=== PATIENT | male | born 1980 | race Caucasian/White ===

== ENCOUNTER 2020-02-07 09:40 | Emergency (ER) | payer SELFPAY ==
[~2020-02-07] VITALS: Ht 182.9 cm; Wt 95.4 kg
[2020-02-07 10:19] VITALS: BP 134/100
[2020-02-07] MEDS ORDERED: METH4TAB2 PO (10:32)
[2020-02-07] MEDS ORDERED: DICL50TA2 PO (10:32)
--- NOTE | 2020-02-07 10:33 | PHYS DOC ---
Past Medical History Past Medical History: No Pertinent History (TWIN BENJAMIN EYEGLASS LENS GRINDER) Past Surgical History: Appendectomy (TWIN BENJAMIN APRN) Smoking Status: Never Smoker Alcohol Use: None (TWIN BENJAMIN APRN) Adult General Chief Complaint Chief Complaint: SHOULDER INJURY HPI HPI Patient is a 40 year old male who presents with 9 days ago states he woke up and thinks he laid on his right shoulder wrong. He states he started having sharp shooting pain that went from his right shoulder blade down his arm and had tingling in his index finger. He states that the pain is getting better as it is a 6 out of 10. He states he has been taking naproxen. 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 (TWIN BENJAMIN APRN) Review of Systems Review of Systems Musculoskeletal: Right shoulder blade pain that radiates down the right arm. Denies back pain or joint pain [] All other systems were reviewed and found to be within normal limits, except as documented in this note. (TWIN BENJAMIN APRN) Allergies Allergies Allergies Coded Allergies Type Severity Reaction Last Updated Verified No Known Drug Allergies 02/07/20 No (BRET ANDERSEN MD) Physical Exam Physical Exam Constitutional: Well developed, well nourished, no acute distress, non-toxic appearance. [] HENT: Normocephalic, atraumatic, bilateral external ears normal, oropharynx moist, no oral exudates, nose normal. [] Eyes: PERRLA, EOMI, conjunctiva normal, no discharge. [] Neck: Normal range of motion, no tenderness, supple, no stridor. [] Cardiovascular:Heart rate regular rhythm, no murmur [] Lungs & Thorax: Bilateral breath sounds clear to auscultation [] Abdomen: Bowel sounds normal, soft, no tenderness, no masses, no pulsatile masses. [] Skin: Warm, dry, no erythema, no rash. [] Back: No tenderness, no CVA tenderness. [] Extremities: Right medial forearm tenderness, no cyanosis, no clubbing, ROM intact, no edema. [] Neurologic: Alert and oriented X 3, normal motor function, normal sensory function, no focal deficits noted. [] Psychologic: Affect normal, judgement normal, mood normal. [] (TWIN BENJAMIN APRN) EKG EKG [] (TWIN BENJAMIN APRN) Radiology/Procedures Radiology/Procedures [] (TWIN BENJAMIN APRN) Course & Med Decision Making Course & Med Decision Making Pertinent Labs and Imaging studies reviewed. (See chart for details) Alert and oriented. Speaks in full clear sentences. Patient has full range of motion of the right shoulder, elbow, wrist, fingers. Patient's welder manufacture is a bit weaker on that side. There is no unilateral swelling. Radial pulse strong present. Skin pink warm and dry. Cap refill less than 3 seconds. Patient does have medial sided forearm tenderness with palpation. Patient currently denies any numbness, chest pain, shortness of breath, injury to the extremity, headache, visual changes, fever, skin temperature changes, skin color changes. Patient is MSE and has decided not to continue with treatment and to follow up with primary care provider. [] (TWIN BENJAMIN APRN) Course & Med Decision Making Staff Physician Addendum: I was working in the ER during the course of this patient's visit. I was available for consultation as needed, but I was not directly involved in the care of this patient. (BRET ANDERSEN MD) Dragon Disclaimer Dragon Disclaimer This electronic medical record was generated, in whole or in part, using a voice recognition dictation system. (TWIN BENJAMIN APRN) Departure Departure Impression: Primary Impression: Cervical radiculopathy Additional Impression: Encounter for medical screening examination Disposition: HOME, SELF-CARE Condition: STABLE Referrals: BOB DEAL MD (PCP) Patient Instructions: Cervical Radiculopathy, [id number] Additional Instructions: Follow up with primary care provider. Use heating pad, OTC lidocaine patches, and medications as prescribed. Do not take NSAIDS with the Diclofenac. Problem Qualifiers TWIN BENJAMIN APRN Feb 07, 2020 10:33 BRET ANDERSEN MD Feb 09, 2020 06:36
== END 2020-02-07 11:21 | disposition home or self-care (01) ==
LOC: ER 09:40
DX: M54.12 Radiculopathy, cervical region (principal)
CPT/HCPCS: 99281